=== PATIENT | male | born 1950 | race Caucasian/White ===

== ENCOUNTER 2018-01-14 10:09 | Day surgery (SDC) | payer MEDICARE, OTHER ==
[2018-01-13 11:41] VITALS: BMI 21.5
[2018-01-14 11:13] LABS: Hemoglobin 14.6 g/dL (14.0-18.0)
[2018-01-14 11:29] LABS: Anion Gap 8 mmol/L (10-20); BUN (Urea Nitrogen) 19 mg/dL (8.4-25.7); Calc. Creatinine Clearance 57 mL/min (70-130); Calcium 11.2 mg/dL (7.8-10.44); Carbon Dioxide 25 mmol/L (23-31); Chloride 108 mmol/L (98-107); Estimated GFR-MDRD 61; Glucose 123 mg/dL (80-115); Potassium 4.1 mmol/L (3.5-5.1); Sodium 137 mmol/L (136-145)
[2018-01-14] MEDS ORDERED: Fentanyl 100 MCG/2 ML VIAL ONE ×2 (12:43→14:56)
[2018-01-14] MEDS ORDERED: Lidocaine 1% w/Epinephrine 1:100K 30 ML VIAL ONE (12:43)
[2018-01-14] MEDS ORDERED: Midazolam HCl 2 mg/2 ml Vial ONE (12:43)
[2018-01-14] MEDS ORDERED: Promethazine HCl 25 MG/ML VIAL IM/IV PRN (15:07)
[2018-01-14] MEDS ORDERED: Ondansetron HCl/PF 4 MG/2 ML Vial IVP PRN (15:07)
[2018-01-14] MEDS ORDERED: Hydrocodone-Acetamin 15 ML UDCUP ONE (16:00)
--- NOTE | 2018-01-14 17:16 | EKG ---
Test Reason : PREOP Blood Pressure : / mmHG Vent. Rate : 054 BPM Atrial Rate : 054 BPM P-R Int : 180 ms QRS Dur : 150 ms QT Int : 430 ms P-R-T Axes : 040 028 -30 degrees QTc Int : 407 ms Sinus bradycardia Right bundle branch block T wave abnormality, consider inferior ischemia Abnormal ECG No previous ECGs available Confirmed by DR. Brittni GRAF ([id number]) on 01/14/2018 5:16:00 PM Referred By: DIANA Confirmed By:DR. Brittni GRAF
--- NOTE | 2018-01-14 18:30 | OP ---
PREOPERATIVE DIAGNOSIS: primary hyperparathyroidism. POSTOPERATIVE DIAGNOSIS: Right parathyroid adenoma. PROCEDURE PERFORMED: Excision of right neck exploration with excision of right parathyroid adenoma u sing laryngeal nerve monitoring. PROCEDURE IN DETAIL: After consent was obtained, the patient was identified, brought to the operatin g room and placed on the table in supine position. General endotracheal anesthesia was made within t he laryngeal nerve monitoring and endotracheal tube was placed and documented to be in position. We then prepped and draped the patient and made an incision in the lower neck and carried down through s kin, subcutaneous tissues, and platysma. Subplatysmal flaps were elevated and the strap muscles were divided in midline. The patient had very dilated blood vessels. The thyroid was identified and di ssected from the surrounding tissues. The middle thyroid vein actually was transected allowing for m edial rotation of the thyroid lobe. We then encountered the thyroid adenoma which was excised and __ ___ removed with the aid of the bipolar forceps. Did obtain hemostasis. We then sent for histologic evaluation and it was consistent with a parathyroid adenoma. Hemostasis obtained. The wound was cl osed. The strap muscles were reapproximated as was then platysma and the skin with absorbable suture . The skin was closed with a 5-0 Prolene. Sterile dressing was applied.
== END 2018-01-14 16:15 | disposition home or self-care (01) ==
LOC: SDC 10:09
PROVIDERS: ATTEND Specialist
PROC: 0GTR0ZZ Resection of Parathyroid Gland, Open Approach (ICD-10-PCS; principal; 2018-01-14)
DX: D35.1 Benign neoplasm of parathyroid gland (principal); E21.0 Primary hyperparathyroidism; J45.909 Unspecified asthma, uncomplicated; E78.5 Hyperlipidemia, unspecified; I10 Essential (primary) hypertension; M85.80 Other specified disorders of bone density and structure, unspecified site; Z79.899 Other long term (current) drug therapy; Z88.1 Allergy status to other antibiotic agents; Z88.2 Allergy status to sulfonamides; Z88.5 Allergy status to narcotic agent; Z88.6 Allergy status to analgesic agent
CPT/HCPCS: 36415; 80048; 85014; 85018; 88305; 88331; 88334; 93005; 93010; 96374; J2001; J2250; J3010